=== PATIENT | male | born 1970 | race Caucasian/White ===

== ENCOUNTER 2024-08-23 00:42 | Emergency (ER) | payer OTHER ==
[2024-08-23] MEDS: Aspirin 81 MG Tab.Chew PO ONE (01:05)
[2024-08-23 01:08] LABS: BASOPHILS ABSOLUTE AUTO 0.04 K/uL (0.00-0.20); BASOPHILS PERCENT AUTO 0.4 % (0.0-2.0); EOSINOPHILS ABSOLUTE AUTO 0.11 K/uL (0.00-0.50); HEMOGLOBIN 14.1 g/dL (13.1-16.8); IMMATURE GRAN ABSOLUTE AUTO 0.06 10^3/uL (0.00-0.04); IMMATURE GRAN PERCENT AUTO 0.6 % (0.0-0.4); LYMPHOCYTES ABSOLUTE AUTO 3.34 K/uL (0.50-3.50); LYMPHOCYTES PERCENT AUTO 31.5 % (10.0-50.0); MEAN CORPUSCULAR HEMOGLOBIN 32.6 pg (28.2-33.3); MEAN CORPUSCULAR HGB CONC 35.3 g/dL (31.7-36.0); MEAN CORPUSCULAR VOLUME 92.6 fL (84.0-98.0); MONOCYTES ABSOLUTE AUTO 0.79 K/uL (0.00-1.00); MONOCYTES PERCENT AUTO 7.5 % (2.0-14.0); NEUTROPHILS ABSOLUTE AUTO 6.26 K/uL (1.40-7.00); PLATELET COUNT,PLT 305 K/uL (150-350); RED BLOOD CELL COUNT 4.32 M/uL (4.33-5.41); RED CELL DISTRIBUTION WIDTH 12.4 % (11.2-14.1); WHITE BLOOD CELL COUNT,WBC 10.6 K/uL (4.0-10.2)
[2024-08-23 01:23] LABS: PROTHROMBIN TIME 9.9 SEC (9.0-11.1)
[2024-08-23 01:32] LABS: ALANINE AMINOTRANSFERASE,ALT 48 U/L (12-78); ALBUMIN 3.4 g/dL (3.4-5.0); ALKALINE PHOSPHATASE 72 IU/L (46-116); ASPARTATE AMNIOTRANSFERASE,AST 22 U/L (15-37); BILIRUBIN TOTAL 0.3 mg/dL (0.2-1.0); BLOOD UREA NITROGEN,BUN 20 mg/dL (7-18); CALCIUM 8.6 mg/dL (8.5-10.1); CHLORIDE,CL 101 mmol/L (98-107); CREATININE 1.25 mg/dL (0.51-1.17); ESTIMATED GFR 70 mL/min (>=60); GLUCOSE RANDOM 286 mg/dL (70-99); MAGNESIUM 1.7 mg/dL (1.8-2.4); POTASSIUM,K 4.6 mmol/L (3.5-5.1); PROTEIN TOTAL,TP 6.8 g/dL (6.4-8.2); SODIUM,NA 136 mmol/L (136-145)
== END 2024-08-23 02:08 | disposition home or self-care (01) ==
LOC: LL.ED 00:42
DX: K21.9 Gastro-esophageal reflux disease without esophagitis (principal); Z79.899 Other long term (current) drug therapy
CPT/HCPCS: 36415; 71045; 80053; 83735; 84484; 85025; 85610; 93005; 99285

== ENCOUNTER 2024-10-01 15:49 | Emergency (ER) | payer SELFPAY ==
[2024-10-01] MEDS ORDERED: Sodium Chloride 0.9% 10 ML Syringe FLUSH PRN (15:55)
[2024-10-01 16:04] LABS: BASOPHILS ABSOLUTE AUTO 0.04 K/uL (0.00-0.20); BASOPHILS PERCENT AUTO 0.3 % (0.0-2.0); EOSINOPHILS ABSOLUTE AUTO 0.23 K/uL (0.00-0.50); EOSINOPHILS PERCENT AUTO 1.7 % (0.0-5.0); HEMOGLOBIN 14.7 g/dL (13.1-16.8); IMMATURE GRAN ABSOLUTE AUTO 0.08 10^3/uL (0.00-0.04); IMMATURE GRAN PERCENT AUTO 0.6 % (0.0-0.4); LYMPHOCYTES PERCENT AUTO 30.3 % (10.0-50.0); MEAN CORPUSCULAR HGB CONC 35.9 g/dL (31.7-36.0); MEAN CORPUSCULAR VOLUME 91.9 fL (84.0-98.0); MONOCYTES ABSOLUTE AUTO 0.81 K/uL (0.00-1.00); MONOCYTES PERCENT AUTO 6.1 % (2.0-14.0); NEUTROPHILS ABSOLUTE AUTO 8.06 K/uL (1.40-7.00); PLATELET COUNT,PLT 316 K/uL (150-350); RED BLOOD CELL COUNT 4.46 M/uL (4.33-5.41); RED CELL DISTRIBUTION WIDTH 12.1 % (11.2-14.1); WHITE BLOOD CELL COUNT,WBC 13.2 K/uL (4.0-10.2)
[2024-10-01 16:28] LABS: LACTIC ACID 2.5 mmol/L (0.4-2.0)
[2024-10-01 16:32] LABS: ALANINE AMINOTRANSFERASE,ALT 46 U/L (12-78); ALKALINE PHOSPHATASE 91 IU/L (46-116); ANION GAP 10.9 meq/L (7-15); ASPARTATE AMNIOTRANSFERASE,AST 19 U/L (15-37); BILIRUBIN TOTAL 0.2 mg/dL (0.2-1.0); BLOOD UREA NITROGEN,BUN 18 mg/dL (7-18); CALCIUM 8.9 mg/dL (8.5-10.1); CARBON DIOXIDE,CO2 25.1 mmol/L (21.0-32.0); CHLORIDE,CL 100 mmol/L (98-107); CREATININE 1.24 mg/dL (0.51-1.17); GLUCOSE RANDOM 390 mg/dL (70-99); LIPASE 225 U/L (16-77); MAGNESIUM 1.8 mg/dL (1.8-2.4); POTASSIUM,K 4.4 mmol/L (3.5-5.1); PRO B-TYPE NATRIUR PEPT,BNPPRO 75 pg/mL (0-125); PROTEIN TOTAL,TP 7.1 g/dL (6.4-8.2); SODIUM,NA 136 mmol/L (136-145)
[2024-10-01 16:33] LABS: ESTIMATED GFR 70 mL/min (>=60)
[2024-10-01 16:37] LABS: PROTHROMBIN TIME 10.2 SEC (9.0-11.1)
[2024-10-01] MEDS: Iopamidol 612 MG/ML 100 ML Bottle IVPUSH STA (17:46)
[2024-10-01] MEDS: Lactated Ringers 1,000 ML IV ONE (17:50)
== END 2024-10-01 19:06 | disposition home or self-care (01) ==
LOC: LL.ED 15:49
DX: K85.90 Acute pancreatitis without necrosis or infection, unspecified (principal); Z88.5 Allergy status to narcotic agent; Z88.1 Allergy status to other antibiotic agents; Z79.84 Long term (current) use of oral hypoglycemic drugs; Z79.899 Other long term (current) drug therapy
CPT/HCPCS: 36415; 71045; 74177; 80053; 83605; 83690; 83735; 83880; 84484; 85025; 85610; 87428-QW; 93005; 96360; 99285-25; J7120; Q9967

== ENCOUNTER 2025-07-02 08:20 | Emergency (ER) | payer BC, MEDICAID ==
[2025-07-02 08:55] LABS: BASOPHILS ABSOLUTE AUTO 0.04 K/uL (0.00-0.20); BASOPHILS PERCENT AUTO 0.3 % (0.0-2.0); EOSINOPHILS ABSOLUTE AUTO 0.06 K/uL (0.00-0.50); EOSINOPHILS PERCENT AUTO 0.5 % (0.0-5.0); IMMATURE GRAN ABSOLUTE AUTO 0.08 10^3/uL (0.00-0.04); IMMATURE GRAN PERCENT AUTO 0.6 % (0.0-0.4); LYMPHOCYTES ABSOLUTE AUTO 3.30 K/uL (0.50-3.50); LYMPHOCYTES PERCENT AUTO 25.3 % (10.0-50.0); MONOCYTES ABSOLUTE AUTO 0.59 K/uL (0.00-1.00); MONOCYTES PERCENT AUTO 4.5 % (2.0-14.0); NEUTROPHILS ABSOLUTE AUTO 8.96 K/uL (1.40-7.00); NEUTROPHILS PERCENT AUTO 68.8 % (45.0-80.0); PLATELET COUNT,PLT 357 K/uL (150-350); RED BLOOD CELL COUNT 4.92 M/uL (4.33-5.41); RED CELL DISTRIBUTION WIDTH 12.4 % (11.2-14.1); WHITE BLOOD CELL COUNT,WBC 13.0 K/uL (4.0-10.2)
[2025-07-02 09:27] LABS: ALANINE AMINOTRANSFERASE,ALT 28 U/L (12-78); ASPARTATE AMNIOTRANSFERASE,AST 13 U/L (15-37); BILIRUBIN TOTAL 0.3 mg/dL (0.2-1.0); BLOOD UREA NITROGEN,BUN 22 mg/dL (7-18); CARBON DIOXIDE,CO2 26.6 mmol/L (21.0-32.0); CHLORIDE,CL 99 mmol/L (98-107); CREATININE 1.44 mg/dL (0.51-1.17); GLUCOSE RANDOM 207 mg/dL (70-99); POTASSIUM,K 4.6 mmol/L (3.5-5.1); PRO B-TYPE NATRIUR PEPT,BNPPRO 28 pg/mL (0-125); PROTEIN TOTAL,TP 7.6 g/dL (6.4-8.2); SODIUM,NA 137 mmol/L (136-145)
[2025-07-02 09:28] LABS: ESTIMATED GFR 58 mL/min (>=60)
[2025-07-02] MEDS: Ondansetron 4 MG Tab.DIS PO ONE (11:34)
== END 2025-07-02 11:45 | disposition home or self-care (01) ==
LOC: LL.ED 08:20
DX: K80.20 Calculus of gallbladder without cholecystitis without obstruction (principal); R63.0 Anorexia; I10 Essential (primary) hypertension; E78.00 Pure hypercholesterolemia, unspecified; E11.9 Type 2 diabetes mellitus without complications; K21.9 Gastro-esophageal reflux disease without esophagitis; Z79.84 Long term (current) use of oral hypoglycemic drugs; Z79.899 Other long term (current) drug therapy; Z88.5 Allergy status to narcotic agent; Z88.1 Allergy status to other antibiotic agents
CPT/HCPCS: 36415; 74022; 76705; 80053; 83690; 83735; 83880; 84484; 85025; 87428-QW; 99284; 99285; A9270-GY